=== PATIENT | male | born 1950 | race Caucasian/White ===

== ENCOUNTER 2017-10-09 07:26 | Day surgery (SDC) | payer MEDICARE ==
[2017-10-09] VITALS (9 sets, daily range): BP systolic 118–138; BP diastolic 60–99; PULSE 58–82; RESP 17–20; TEMP 97.7–97.9; O2SAT 91–97
[~2017-10-09] VITALS: Ht 177.8 cm; Wt 97.7 kg
[~2017-10-09 07:26] MED LIST: ALBU8I INH; AMIT10 PO; ASPI81TA82 PO; ATOR80TA41 PO; BUPR-175 PO; CLOP75 PO; DIAZ5 PO; GABA400C5 PO; GLUCTAB PO; HYDR-3129 PO; LIDO5%T TOP; LISI-357 PO; MELO7.5 PO; PRAZ2 PO; PROT40TA PO; SYMB160A INH; TEMA30CA PO; VENL-39 PO; VIAG50TA PO
[2017-10-09] MEDS ORDERED: SODIUM CHLOR 0.9% 1000 ML INJ 1,000 ML IV SCH (08:00)
[2017-10-09] MEDS ORDERED: SYMB160A INH (08:17)
[2017-10-09] MEDS ORDERED: SPIRCAP INH (08:17)
[2017-10-09] MEDS ORDERED: MOBI15TA PO (08:17)
[2017-10-09] MEDS ORDERED: BUPR75TA PO (08:17)
[2017-10-09] MEDS ORDERED: GABA400C5 PO (08:17)
[2017-10-09] MEDS ORDERED: PRIM50TA5 PO (08:17)
[2017-10-09] MEDS ORDERED: HYDR-3583 PO (08:17)
[2017-10-09] MEDS ORDERED: PANT40TA3 PO (08:17)
[2017-10-09] MEDS ORDERED: ASPI-516 CHEW (08:17)
[2017-10-09] MEDS ORDERED: AMIT50TA3 PO (08:17)
[2017-10-09] MEDS ORDERED: ALBU1AER5 INH (08:17)
[2017-10-09] MEDS ORDERED: VENL75TA PO (08:17)
[2017-10-09] MEDS ORDERED: EPIP0.3I IM (08:17)
[2017-10-09] MEDS ORDERED: LORA-650 PO (08:17)
[2017-10-09] MEDS ORDERED: CLOP75TA PO (08:17)
[2017-10-09] MEDS ORDERED: METH2.5T PO (08:17)
[2017-10-09] MEDS ORDERED: WHIT15OI EACH EYE (08:17)
[2017-10-09] MEDS ORDERED: NOVO7030P2 SQ (08:17)
[2017-10-09] MEDS ORDERED: TYLE325T PO (08:17)
[2017-10-09] MEDS ORDERED: PRAZ5CAP PO (08:17)
[2017-10-09] MEDS ORDERED: DICL1GEL7 TOPICAL (08:17)
[2017-10-09] MEDS ORDERED: LIDO1CRE TOPICAL (08:17)
[2017-10-09] MEDS ORDERED: LISI-519 PO (08:17)
[2017-10-09] MEDS ORDERED: FOLI-30 PO (08:17)
[2017-10-09] MEDS ORDERED: METF500T PO (08:17)
[2017-10-09] MEDS ORDERED: ATOR80TA45 PO (08:17)
[2017-10-09] MEDS ORDERED: PRAZ1CAP PO (08:17)
[2017-10-09 08:35] LABS: AUTOMATED NEUTROPHIL # 5.1 TH/MM3 (1.8-7.7); BASOPHIL # 0.1 TH/MM3 (0-0.2); BASOPHIL % 0.6 % (0.0-2.0); EOSINOPHIL # 0.1 TH/MM3 (0-0.4); EOSINOPHIL % 1.8 % (0.0-4.0); HEMATOCRIT 33.4 % (39.0-51.0); LYMPH % 25.1 % (9.0-44.0); LYMPHOCYTE # 2.1 TH/MM3 (1.0-4.8); MEAN CELL VOLUME 86.4 FL (80.0-100.0); MEAN CORPUSCULAR HEMOGLOBIN 28.4 PG (27.0-34.0); MEAN CORPUSCULAR HGB CONC 32.8 % (32.0-36.0); MEAN PLATELET VOLUME 7.5 FL (7.0-11.0); MONOCYTE # 0.9 TH/MM3 (0-0.9); NEUT % 61.5 % (16.0-70.0); PLATELET COUNT 270 TH/MM3 (150-450); RED BLOOD COUNT 3.87 MIL/MM3 (4.50-5.90); RED CELL DISTRIBUTION WIDTH 16.1 % (11.6-17.2); WHITE BLOOD COUNT 8.2 TH/MM3 (4.0-11.0)
[2017-10-09 08:38] LABS: PROTHROMBIN TIME - PATIENT 10.1 SEC (9.8-11.6)
[2017-10-09 08:43] LABS: BICARBONATE 24.4 MEQ/L (21.0-32.0); CALCIUM 8.8 MG/DL (8.5-10.1); CREATININE 0.9 MG/DL (0.60-1.30)
[2017-10-09] MEDS ORDERED: MIDAZOLAM HCL 2 MG/2 ML VIAL ONE (10:44)
[2017-10-09] MEDS ORDERED: fentaNYL CITRATE 250 MCG/5 ML AMP ONE (10:44)
[2017-10-09] MEDS ORDERED: ceFAZolin 2 GM PREMIX 50 ML ONE (11:16)
[2017-10-09] MEDS ORDERED: IODIXANOL 320 MG/ML 50 ML VIAL (for RAD SPEC) I-ARTERIAL ONE (12:10)
--- NOTE | 2017-10-09 12:15 | PD.RAD ---
Post Procedure Progress Note Pre Procedure Diagnosis: (1) Claudication of both lower extremities Post Procedure Diagnosis: (1) Claudication of both lower extremities Procedure Date: Oct 09, 2017 Supervising Radiologist: Noah Sadler JR Proceduralist/Assist: Heydi Canales, RT(R), Kailyn Quintana RT(R)() Anesthesia: Conscious Sedation Plan of Activity Patient to Unit: ROPU Patient Condition: Good See PACS Report for procedural detail/treatment Vascular-Arterial Procedure Procedure 1 Procedure Site: Right Leg, Left Leg Procedure(s): Angiogram, Stent Placement Access Access Site(s): Right Femoral Artery Closure Site(s): Right vascular closure device Findings: Pelvic angiography done to evaluate reported bilateral external iliac stenosis and Fem-pop BPG prox anastamosis stenoses. Angiography shows 50-60% stenosis of left MESERET just distal to stent. This responded well to primary stenting. Left EIA is patent. Severe disease of left CLASSIFIED AD TAKER which is not amenable to endovascular repair and would require surgical intervention. Right inflow and both anastamosis are patent. Plan F/U with Dr Benitez. Jr. Doroteo,Noah Sierra MD Oct 09, 2017 12:15
--- NOTE | 2017-10-09 15:21 | RADRPT ---
EXAM DATE/TIME: 10/09/2017 12:02 [facility] COMPARISON: No previous studies available for comparison. INDICATIONS : Patient with a history of peripheral vascular disease. MEDICAL HISTORY : HTN Diabetes Asthma Osteoarthritis PTSD SURGICAL HISTORY : Appendectomy Right ankle surgery Bilateral lower extremity bypass ENCOUNTER: Initial ACUITY: 3 months PAIN SCORE: 4/10 LOCATION: Right shoulder FLUORO TIME: 11.7 minutes IMAGE SERIES: 12 ACCESS SITE: Right Femoral artery SEDATION TIME: 60 minutes CONTRAST: 1.) 140 cc MEDICATION(S): 1.) 4 mg midazolam (Versed) IV 2.) 250 mcg fentanyl (Sublimaze) IV 3.) 2 g cefazolin (Ancef) IV Intra-procedural antibiotics were given as prescribed above. DEVICE(S): 1.) Left common iliac artery 8X37mm Express stent (balloon expanding) 2.) Angio-Seal closure device PROCEDURE : 1. Ultrasound-guided puncture of the access site. 2. Angiography of the access site prior to closure device. 3. Conscious sedation with continuous EKG and Oximetry monitoring. 4. Percutaneous closure of the access site. 5. Angiography of the pelvis 6. Angiography of the left common iliac artery 7. stenting of the left common iliac artery I reviewed the patient's prior CTA with runoff from June 2017. The plan is to address bilateral in flow stenoses and evaluate proximal anastomoses of the patient's bilateral femoropopliteal bypasses. The risks, benefits and alternatives to the procedure were explained and verbal and written consent w as obtained. The site was prepped in sterile fashion. Full sterile technique was used, including ca p, mask, sterile gloves and gown and a large sterile sheet. Hand hygiene and 2% chlorhexidine and/or betadine/alcohol prep was utilized per protocol for cutaneous antisepsis. Sterile gel and sterile p robe cover were utilized for ultrasound guidance. The skin and subcutaneous tissues were infiltrated with local anesthetic solution. With ultrasound and fluoroscopic guidance the selected artery was punctured and a vascular sheath was placed. Angiography of the common femoral artery was performed for evaluation prior to percutaneous closure device placement. Access was performed proximal to the third of the right femoropopliteal bypass. An Omni Flush cathete r was passed into the lower bowel aorta and pelvic angiography performed in multiple projections and magnifications. The left common iliac artery was selected and dedicated angiography performed from [facility] level as well. These diagnostic images show bilateral kissing stents which are patent. There is ec centric atherosclerotic plaque adjacent to the distal margin of the left common iliac stent generatin g a 60% stenosis. The left external iliac artery is patent. There is atherosclerotic disease involvin g the left common femoral artery generating a long segment 40-60% stenosis. This extends down to the origin of the proximal anastomosis does not involve the anastomosis itself. The right inflow shows sc attered atherosclerotic plaque without hemodynamically significant stenosis. The right proximal anast omosis of the femoropopliteal it passed is widely patent. Primary stenting of the left common iliac a rtery was performed utilizing a by 37 mm balloon expandable stent. Complete resolution of the stenosi s noted. Further imaging of the lower legs was not performed due to the contrast already utilized as well as the good evaluation of these structures on the prior CTA with runoff. Hemostasis was obtained with the prescribed medicated closure device. Conscious sedation was perform ed with the prescribed dosages and duration as above in the presence of an independent trained radiol ogy nurse to assist in the monitoring of the patient. EKG and oximetry remained stable throughout th e procedure. CONCLUSION: 1. The examination was performed to evaluate the inflow. The bilateral kissing stents are patent. The right inflow is patent. The left inflow showed a moderate stenosis of the left common iliac artery t hat responded well to primary stenting. The left common femoral artery is heavily diseased. This exte nds down to the origin of the left femoropopliteal bypass graft proximal anastomosis but does not inv olve the anastomosis itself. The patient's common femoral artery disease is not amenable to endovascu lar repair. The patient's right femoropopliteal bypass graft proximal anastomosis is widely patent. Noah Sadler Jr., MD on October 09, 2017 at 15:08 Board Certified Radiologist. This report was verified electronically.
== END 2017-10-09 16:15 | disposition home or self-care (01) ==
LOC: HROP 07:26 → HRIP 07:27 → HROP 16:15
PROVIDERS: ATTEND Thoracic Surgery (Cardiothoracic Vascular Surgery)
DX: T82.858A Stenosis of other vascular prosthetic devices, implants and grafts, initial encounter (principal); I73.9 Peripheral vascular disease, unspecified; E11.51 Type 2 diabetes mellitus with diabetic peripheral angiopathy without gangrene; I10 Essential (primary) hypertension; M19.90 Unspecified osteoarthritis, unspecified site; J45.909 Unspecified asthma, uncomplicated; F43.10 Post-traumatic stress disorder, unspecified; Z79.4 Long term (current) use of insulin
CPT/HCPCS: 37236; 75716; 76937; 80048; 85025; 85610; 85730; 99152; 99153; C1760; C1769; C1876; C1887; C1894; J0690; J2250; J3010; J7030; Q9967